=== PATIENT | male | born 1995 | race Caucasian/White ===

== ENCOUNTER 2025-04-05 20:41 | Emergency (ER) | payer SELFPAY ==
[~2025-04-05] VITALS: Ht 180.3 cm; Wt 113.4 kg
[2025-04-05 22:16] LABS: Source, Urine Voided
[2025-04-05 22:21] LABS: Bilirubin, Urine Neg (Neg); Glucose Qualitative, Urine Neg (Neg); Ketones, Urine Neg (Neg); Leukocyte Esterase, Urine Neg (Neg); Protein, Urine Neg (Neg); Specific Gravity, Urine 1.025 (1.003-1.022); Urobilinogen, Urine NORM (Normal)
[2025-04-05 22:31] LABS: Color, Urine Pale Yellow (P-Yellow)
[2025-04-05] MEDS ORDERED: Ketorolac Tromethamine 15mg Vial IM ONE (22:40)
[2025-04-05] MEDS ORDERED: Lidocaine 4% 1 Patch TOP ONE (22:40)
[2025-04-05] MEDS ORDERED: Robaxin750 MG PO (22:42)
[2025-04-05] MEDS ORDERED: ASPERFLEX1 EACH TOP (22:42)
== END 2025-04-05 22:50 | disposition home or self-care (01) ==
LOC: ER 20:41
PROVIDERS: Student in an Organized Health Care Education/Training Program
DX: M54.50 Low back pain, unspecified (principal)
CPT/HCPCS: 81003; 96372; 99283-25; A9270; J1885